=== PATIENT | female | born 1960 | race Two or more races ===

== ENCOUNTER 2019-12-18 17:03 | Emergency (ER) | payer SELFPAY ==
[~2019-12-18] VITALS: Ht 162.6 cm; Wt 135.0 kg
[2019-12-18 19:15] VITALS: BP 205/94
--- NOTE | 2019-12-18 19:45 | PHYS DOC ---
Past Medical History Past Medical History: Diabetes-Type II, Hypertension (YOANA CAMILO APRN) Past Surgical History: (YOANA CAMILO APRN) Smoking Status: Never Smoker Alcohol Use: None (YOANA CAMILO APRN) Attending Signature I have participated in the care of this patient and I have reviewed and agree with all pertinent clinical information above including history, exam, and recommendations. (KATE JACOB MD) Adult General Chief Complaint Chief Complaint: INSECT BITE [facility] HPI Patient is a 59 year old female who presents with insect bite to L flank that occurred yesterday. The patient did not see what bit her but is worried it could be a spider. Denies additional symptoms. The patient does have a history of diabetes. Complete ROS were reviewed and found to be within normal limits, except as documented in the HPI (YOANA CAMILO APRN) Physical Exam Physical Exam Constitutional: Well developed, well nourished, no acute distress, non-toxic appearance. [] HENT: Normocephalic, atraumatic, bilateral external ears normal, oropharynx m oist, no oral exudates, nose normal. [] Eyes: PERRLA, EOMI, conjunctiva normal, no discharge. [] Skin: L flank has round area of erythema with blackened skin. Back: No tenderness, no CVA tenderness. [] Extremities: No tenderness, no cyanosis, no clubbing, ROM intact, no edema. [] Neurologic: Alert and oriented X 3, normal motor function, normal sensory function, no focal deficits noted. [] Psychologic: Affect normal, judgement normal, mood normal. [] (YOANA CAMILO APRN) Current Patient Data Vital Signs Vital Signs Date Time Temp Pulse Resp B/P (MAP) Pulse Ox O2 Delivery O2 Flow Rate FiO2 12/18/19 19:15 98.9 89 20 205/94 (131) 95 Room Air 98.9 (KATE JACOB MD) Lab Values Laboratory Tests Test 12/18/19 19:46 Glucose (Fingerstick) 173 mg/dL (70-99) H (KATE JACOB MD) Lab Values Laboratory Tests Test 12/18/19 19:46 Glucose (Fingerstick) 173 mg/dL (70-99) H (YOANA CAMILO APRN) EKG EKG [] (YOANA CAMILO APRN) Radiology/Procedures Radiology/Procedures [] (YOANA CAMILO APRN) Course & Med Decision Making Course & Med Decision Making Pertinent Labs and Imaging studies reviewed. (See chart for details) Will check blood glucose. Blood glucose was 173. Will d/c home on Augmentin. (YOANA CAMILO APRN) Dragon Disclaimer Dragon Disclaimer This electronic medical record was generated, in whole or in part, using a voice recognition dictation system. (YOANA CAMILO APRN) Departure Departure Impression: Primary Impression: Insect bite Disposition: HOME, SELF-CARE Condition: STABLE Referrals: THUY NAVARRO DO (PCP) Patient Instructions: Insect Bite Additional Instructions: Thank you for visiting [facility]. We appreciate you trusting us with your care. If any additional problems come up don't hesitate to return to visit us. Please follow up with your primary care provider so they can plan additional care if needed and know about the problem that you had. If symptoms worsen come back to the Emergency Department. Any concerning symptoms that start such as chest pain, shortness of air, weakness or numbness on one side of the body, running high fevers or any other concerning symptoms return to the ER. You have been prescribed an antibiotic today to help fight your infection. Please take all of the antibiotic as directed. If after 48 hours the infection is not improving, please return for more care. If the infection worsens, return to ER for additional care. Scripts Amoxicillin/Potassium Clav (AUGMENTIN 875-125 TABLET) 1 Each Tablet 1 TAB PO BID for 7 Days, #14 TAB 0 Refills Prov: YOANA CAMILO APRN 12/18/19 YOANA CAMILO APRN Dec 18, 2019 19:45 KATE JACOB MD Dec 18, 2019 22:12
[2019-12-18] MEDS ORDERED: AMOX1TAB61 PO (19:55)
== END 2019-12-18 20:10 | disposition home or self-care (01) ==
LOC: ER 17:03
DX: S30.861A Insect bite (nonvenomous) of abdominal wall, initial encounter (principal); L53.9 Erythematous condition, unspecified; E11.9 Type 2 diabetes mellitus without complications; I10 Essential (primary) hypertension; Z98.890 Other specified postprocedural states; W57.XXXA Bitten or stung by nonvenomous insect and other nonvenomous arthropods, initial encounter; Y93.89 Activity, other specified; Y92.89 Other specified places as the place of occurrence of the external cause; Y99.8 Other external cause status
CPT/HCPCS: 82962; 99283

== ENCOUNTER 2021-05-29 22:20 | Emergency (ER) | payer SELFPAY ==
[~2021-05-29] VITALS: Ht 162.6 cm; Wt 125.0 kg
[~2021-05-29 22:20] MED LIST: AMOX1TAB61 PO
[2021-05-30 01:45] VITALS: BP 169/80
--- NOTE | 2021-05-30 02:50 | RAD ---
XR CHEST 1V INDICATION: Reason: sinus pressure, uri / Spl. Instructions: / History: . COMPARISON STUDY: None. FINDINGS: Lungs: Normal lung volume. No pulmonary mass or consolidation. The tracheobronchial tree and hilar st ructures are normal. Pleura: No pleural effusion or pneumothorax. Heart and Mediastinum: Cardiomegaly. Tortuosity of the thoracic aorta. IMPRESSION: No acute cardiopulmonary process. Electronically signed by: Goyo Leon MD (05/30/2021 2:47 AM) [facility]
--- NOTE | 2021-05-30 04:02 | PHYS DOC ---
Past Medical History Past Medical History: Diabetes-Type II, Hypertension Past Surgical History: Additional Past Surgical Histo: c sect Smoking Status: Never Smoker Alcohol Use: None General Adult EDM: Chief Complaint: FATIGUE HPI: HPI: 60 -year-old female past medical history of diabetes and hypertension, presents to the ED with complaints of bilateral sinus pressure, subjective fevers, dry cough, body aches, dizziness, shortness of breath, headache and nausea for the past week. States she was supposed to leave for [place] a week ago but was worried for covid, tested negative. Has not been vaccinated for Covid and is requesting a Covid test. Review of Systems: Review of Systems: Constitutional: Denies chills or lack of taste or smell Eyes: Denies change in visual acuity. [] HENT: Denies rhinorrhea or sore throat. [] Respiratory: Denies productive cough or hemoptysis Cardiovascular: Denies chest pain or edema. [] GI: Denies nausea, vomiting, : Denies dysuria or hematuria Musculoskeletal: Denies back pain or joint pain. [] Integument: Denies rash or diaphoresis Neurologic: Denies neck stiffness, focal weakness or sensory changes. [] Endocrine: Denies polyuria or polydipsia. [] Lymphatic: Denies swollen glands. [] Psychiatric: Denies depression or anxiety. [] Heart Score: C/O Chest Pain: No Risk Factors: Risk Factors: DM, Current or recent (<one month) smoker, HTN, HLP, family history of CAD, obesity. Risk Scores: Score 0 - 3: 2.5% MACE over next 6 weeks - Discharge Home Score 4 - 6: 20.3% MACE over next 6 weeks - Admit for Clinical Observation Score 7 - 10: 72.7% MACE over next 6 weeks - Early Invasive Strategies Allergies: Allergies: Allergies Coded Allergies Type Severity Reaction Last Updated Verified No Known Drug Allergies 05/30/21 No Physical Exam: PE: Constitutional: Well developed, well nourished, no acute distress, non-toxic appearance, obese HENT: Normocephalic, atraumatic, nasal voice with bilateral maxillary sinus pres sure Eyes: EOMI, conjunctiva normal, no discharge. Neck: Normal range of motion, supple, Cardiovascular: S1/2 present, regular rhythm Lungs & Thorax: Speaking in full sentences, bilateral equal chest rise, no tachypnea or increased work of breathing Abdomen: soft, no tenderness, Skin: Warm, dry, no erythema, no rash. [] Extremities: No tenderness, no cyanosis, Neurologic: Alert and oriented X 3, normal motor function, normal sensory function, no focal deficits noted, steady gait Psychologic: Affect normal, judgement normal, mood normal. [] Current Patient Data: Vital Signs: Vital Signs Date Time Temp Pulse Resp B/P (MAP) Pulse Ox O2 Delivery O2 Flow Rate FiO2 05/30/21 01:45 98.0 85 20 169/80 (131) 98 Room Air 98.0 EKG: EKG: [] Radiology/Procedures: Radiology/Procedures: []IMAGING REPORT Signed PATIENT: SHELIA KAYE ACCOUNT: [id number] : 1960 LOCATION: ER AGE: 60 SEX: F EXAM STATUS: REG ER ORD. PHYSICIAN: HEIDI AMEZQUITA DO REASON: sinus pressure, uri PROCEDURE: CHEST AP ONLY XR CHEST 1V INDICATION: Reason: sinus pressure, uri / Spl. Instructions: / History: . COMPARISON STUDY: None. FINDINGS: Lungs: Normal lung volume. No pulmonary mass or consolidation. The tracheobronchial tree and hilar structures are normal. Pleura: No pleural effusion or pneumothorax. Heart and Mediastinum: Cardiomegaly. Tortuosity of the thoracic aorta. IMPRESSION: No acute cardiopulmonary process. Electronically signed by: Zain Salazar MD (05/30/2021 2:47 AM) [facility] DICTATED and SIGNED BY: ZAIN SALAZAR MD DATE: 05/30/21 [id number] Course & Med Decision Making: Course & Med Decision Making Pertinent Labs and Imaging studies reviewed. (See chart for details) COVID-19 CRITERIA: The patient was evaluated during the global COVID-19 pandemic, and that diagnosis was suspected/considered upon their initial presentation. Their evaluation, treatment and testing was consistent with current guidelines for patients who present with complaints or symptoms that may be related to COVID-19. Patient presents to the ED with multiple complaints, concerning for acute upper respiratory infection, Covid on differential test pending. Chest x-ray with no infiltrate. Will discharge home with strict ED return precautions were given for neurologic deficits, chest pain, increased work of breathing or dyspnea. Encouraged urgent outpatient follow-up with PMD. Life-threatening processes were considered but are low suspicion at this time, given history, physical exam and ED workup. Pt was educated on all prescription medications and adverse effects. All patient's questions were answered and pt was stable at time of discharge. Life/limb-threatening differential includes but is not limited to, meningitis, encephalitis, intracranial hemorrhage, obstructive hydrocephaly, CVA, carbon monoxide poisoning, cerebral or cavernous venous thrombosis, hypertensive emergency, preeclampsia, giant cell arteritis, glaucoma, carotid or vertebral artery dissection, superior vena cava syndrome, infection, optic neuritis, or space-occupying lesions. I have spoken with the patient and/or caregivers. I explained the patient's condition, diagnoses and treatment plan based on the information available to me at this time. I have answered the patient and/or caregiver's questions and addressed any concerns. The patient and/or caregivers have a good understanding of patient's diagnosis, condition and treatment plan as can be expected at this point. Vital signs have been stable. Patient's condition is stable and appropriate for discharge from the emergency department. Patient will pursue further outpatient evaluation with primary care physician or other designated or consulting physician as outlined in the discharge instructions. The patient and/or caregivers are agreeable to this plan of care and follow-up instructions have been explained in detail. The patient and/or c aregivers have received these instructions in written form and have expressed an understanding of the discharge instructions. The patient and/or caregivers are aware that any significant change of condition or worsening of symptoms should prompt immediate return to this or the closest emergency department or call to 911. Ren Disclaimer: Ren Disclaimer: This electronic medical record was generated, in whole or in part, using a voice recognition dictation system. Departure Departure Impression: Primary Impression: Person under investigation for COVID-19 Additional Impression: URI (upper respiratory infection) Disposition: 01 HOME / SELF CARE / HOMELESS Condition: STABLE Referrals: UNKNOWN PCP NAME (PCP) Patient Instructions: Sinusitis, Upper Respiratory Infection, Adult Additional Instructions: Return to ED immediately if your oxygen level drops below 90% (purchase a pulse oximetry at a medical supply store), difficulties breathing including rapid breathing or increased work of breathing (skin sucking under ribs), chest pain or stroke-like symptoms (facial droop, speech changes, arm/leg weakness). You have been tested for or diagnosed with COVID-19. It is an infection caused by a new type of coronavirus. COVID-19 will cause cold-like or mild flu symptoms in most. It can cause more severe symptoms like problems breathing in some. There is no treatment for COVID-19. The body will clear the infection over time. Self-care will help to ease discomfort. Steps to Take: Self-Care Rest as needed. Healthy habits may help you feel better. Steps include: Choose healthy foods including fruits and vegetables. Drink water throughout the day. Get plenty of sleep each night. If you smoke, try to quit. It may ease breathing. Avoid alcohol. Keep Others Healthy The virus can spread to others. Droplets are released every time you sneeze or cough. The droplets can get into the mouth, nose, or eyes of people near you and lead to infection. To lower the chances of spreading COVID-19 to others: Stay at home until your doctor has said it is safe to leave. If you tested positive this will mean staying isolated until both of the following are true: At least 7 days have passed since the start of illness. You are free of fever for at least 72 hours without the use of medicine. During this time: - Avoid public areas, events, or transportation. Do not return to work or school until your doctor has said it is safe to do so. - Call ahead if you need to go to a medical center. Let them know you may have COVID-19. It will help them guide you where to go. They may also ask you to wear a facemask when you come to the office. - If you call for emergency medical services, let them know you may have COVID- 19. While at home: - Try to avoid close contact with others. Stay about 6 feet away. - If possible, spend most of your time in a separate room from others. - Use a face mask if you will be in close contact with others such as sharing a room or vehicle. - Have someone wipe down common surfaces in the home. Use household public health training assistant every day on areas like doorknobs, counters, or sinks. - Cough or sneeze into a tissue. Throw the tissue away right after use. If a tissue is not available, cough or sneeze into your elbow. - Wash your hands often. Wash them after sneezing or coughing. Use soap and water and wash for at least 20 seconds. Alcohol based hand cell cleaner can be used if soap and water is not available. - Do not prepare food for others. Avoid sharing personal items like forks, spoons, or toothbrushes. - Avoid close contact with pets while you are sick. There is no evidence of the virus passing to pets. This is a safety step until more is known about this virus. Isolation can be frustrating. Social interaction can help. Keep in touch with friends and family through phone and tech options. You can still interact with others in your home, just keep a safe distance of about 6 feet. Follow-up: Your doctors office will check in with you to see if there are any changes in your health. You may be asked to keep track of symptoms to share with them. They will also let you know when you are clear to be in public again. Problems to Look Out For: Contact your doctor if your recovery is not going as you expect. Get emergency care if you have problems such as: - Trouble breathing - Nonstop chest pain or pressure - Changes in awareness, confusion, or problems waking - Lips or face have bluish color - Worsening of symptoms If you think you have an emergency, call for emergency medical services right away. [facility] DO May 30, 2021 04:02
--- NOTE | 2021-05-31 10:32 | NUR ---
IP: Attempted to contact pt concerning covid results. No answer and voicemail box is full.
== END 2021-05-30 04:09 | disposition home or self-care (01) ==
LOC: ER 22:20
DX: U07.1 COVID-19 (principal); J06.9 Acute upper respiratory infection, unspecified; E11.9 Type 2 diabetes mellitus without complications; I10 Essential (primary) hypertension
CPT/HCPCS: 71045; 99284; U0003; U0005